=== PATIENT | male | born 1940 | race African-American/Black ===

== ENCOUNTER → 2017-05-10 | Outpatient (CLI) | payer MEDICARE, BC | LOC: OD 08:47 | PROVIDERS: ATTEND Radiology Radiation Oncology | DX: C61 Malignant neoplasm of prostate (principal) | CPT/HCPCS: 36415; 84153 ==

== ENCOUNTER → 2017-11-08 | Outpatient (CLI) | payer MEDICARE, BC | LOC: OD 10:01 | PROVIDERS: ATTEND Radiology Radiation Oncology | DX: C61 Malignant neoplasm of prostate (principal) | CPT/HCPCS: 36415; 84153 ==

== ENCOUNTER → 2018-05-06 | Outpatient (CLI) | payer MEDICARE, BC | LOC: OD 13:29 | PROVIDERS: ATTEND Radiology Radiation Oncology | DX: C61 Malignant neoplasm of prostate (principal) | CPT/HCPCS: 36415; 84153 ==

== ENCOUNTER → 2018-11-04 | Outpatient (CLI) | payer MEDICARE, BC | LOC: OD 12:46 | PROVIDERS: ATTEND Radiology Radiation Oncology | DX: C61 Malignant neoplasm of prostate (principal) | CPT/HCPCS: 36415; 84153 ==